=== PATIENT | male | born 1975 | race Two or more races ===

== ENCOUNTER 2017-01-28 05:17 | Day surgery (SDC) | payer OTHER ==
--- NOTE | ~2017-01-28 | OP ---
Record Of Operation [facility] [address] [place]. 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 POSTOPERATIVE DIAGNOSIS: Left L4-5 and L5-S1 disk herniation, lumbar radiculopathy. PROCEDURE: Left-sided L4-5 and L5-S1 microdiskectomy, use of minimal access spine technology, intraoperative O-arm CT scan with computer navigation. Operative microscope with decompression of the left L4-5 and S1 nerve roots. SURGEON: Ashwin Stokes D.OGi ANESTHESIA: General. ESTIMATED BLOOD LOSS: 15 mL. COMPLICATIONS: None. INDICATIONS: The patient is a pleasant 41-year-old with intractable left leg pain, failed multiple attempts at conservative treatment. After discussion of the risks and benefits, elected to proceed with surgical intervention. PROCEDURE IN DETAIL: Identified the patient in the holding area. Consent was obtained. Went to the operating room. Underwent general anesthesia with endotracheal intubation. Prepped and draped in the usual sterile fashion. Operative safety pause was performed and then we proceeded with surgery. The O-arm registration frame was placed in the iliac crest. O-arm was brought in for intraoperative CT scan. Computer registration materials were verified under computer guidance. A left longitudinal incision was made over the L4-S1 level, taken down through the fascial layer. Tube dilators were used to minimally invasively dissect down to the left L4-5 interspace. Operative microscope was brought in. A franklin was used to perform a laminotomy. Av performed a foraminotomy. Knife was used to incise the disk and free disk material removed. The L4-5 nerve roots were free of compression. This was repeated again at the L5-S1 level where there were several very large extruded fragments causing severe nerve compression that were removed. The L4-S1 nerve roots were free of compression at the end the case. Irrigation performed. Hemostasis achieved. 40 mg Depo-Medrol injected over the nerves. Layered closure performed. Sterile dressings applied. The patient awoke and extubated, taken to the recovery room in stable condition. OPERATIVE FINDINGS: L4-S1 disk herniation with stenosis. ODILIA/DINA Record Of Operation [address] [place]. [address] NAME: JAMES TIWARI : 77 STATUS : REG [facility] PAT#: [id number] AGE: 41 ADM/REG DATE : 01/28/17 MR#: [id number] REPORT SERV DATE: 01/28/17 DICTATED BY: ASHWIN STOKES DATE: 01/28/17 REPORT STATUS : Draft TRANSCRIBED BY: DINA DATE: 01/28/17 Ashwin Stokes DO / [id number] CC: Ashwin Stokes DO
[~2017-01-28 05:17] MED LIST: FLEX PO; NAP500 PO
== END 2017-01-28 14:17 | disposition home or self-care (01) ==
LOC: SDC 05:17
PROVIDERS: Orthopaedic Surgery
PROC: 01NB0ZZ Release Lumbar Nerve, Open Approach (ICD-10-PCS; 2017-01-28)
PROC: 0SB20ZZ Excision of Lumbar Vertebral Disc, Open Approach (ICD-10-PCS; principal; 2017-01-28 06:45)
DX: M51.16 Intervertebral disc disorders with radiculopathy, lumbar region (principal); M51.17 Intervertebral disc disorders with radiculopathy, lumbosacral region
CPT/HCPCS: 85014; 85018; 88304; 88311; J0690; J1030; J2250; J2270; J2405; J2710; J3010